=== PATIENT | male | born 1980 | race Caucasian/White ===

== ENCOUNTER → 2024-06-07 09:08 | Outpatient (REF) | payer OTHER, SELFPAY | LOC: PAVMRI 09:08 | PROVIDERS: ATTENDING PHYSICIAN Family Medicine; FAMILY PHYSICIAN Family Medicine | DX: S86.312A Strain of muscle(s) and tendon(s) of peroneal muscle group at lower leg level, left leg, initial encounter (principal); Z98.890 Other specified postprocedural states | CPT/HCPCS: 73721 ==

== ENCOUNTER 2024-06-29 12:45 | Emergency (ER) | payer OTHER, SELFPAY ==
[2024-06-29 12:47] VITALS: BP 123/73
--- NOTE | 2024-06-29 13:58 | ED.GENMED ---
History of Present Illness
General
Chief Complaint: Skin Problem
Source: patient
Exam Limitations: none
Time Seen by Provider: 06/29/24 13:33
History of Present Illness
History of Present Illness:
44yoM with no significant past medical history presenting for evaluation of right lower leg swelling and redness. He woke up yesterday with focal swelling to the anterior right lower leg. He thought he may have been bitten by a spider but does not
recall any specific incident. He has been applying warm compresses and the swelling has improved since yesterday. He continues to have redness and warmth to the area. He was seen by his orthopedist today for an unrelated issue and he was told to
go to urgent care for evaluation. He denies any fevers. No history of IV drug use. No prior history of MRSA.
Phy Exam
General Physical Exam
General Presentation: well appearing and no apparent distress
General age: appears stated age
General Skin: warm and dry
General Habitus: normal
General Mental: alert
ENT Exam
ENT Exam: normocephalic
Cardiovascular Exam
Cardiovascular Exam: normal peripheral pulses (2+ R DP pulse)
Pulmonary Exam
Pulmonary Exam: no respiratory distress
Neurological Exam
Neurological Exam: alert
Naif Coma Scale
Eye Opening: Spontaneous
Verbal Response: Oriented
Motor Response: Obeys Commands
GCS Total Score: 15
Musculoskeletal Exam
Musculoskeletal Exam: other (R lower leg: There is a focal area of swelling and induration to the anterior lower leg that appears to be a bug bite. There is surrounding erythema and warmth with faint red streaking proximally to the level of the mid
calf. No circumferential redness. No bullae, crepitus, or pain out of proportion)
Skin Exam
Skin Exam: warm/dry
Psychiatric Exam
Psychiatric Exam: normal mood/affect
Course
Vital Signs
Initial and Last Documented VS:
Initial Vital Signs
Temp Pulse Resp BP Pulse Ox
98.1 F 99 16 123/73 98
06/29/24 12:47 06/29/24 12:47 06/29/24 12:47 06/29/24 12:47 06/29/24 12:47
Last Documented Vital Signs
Temp Pulse Resp BP Pulse Ox
98.1 F 99 16 123/73 98
06/29/24 12:47 06/29/24 12:47 06/29/24 12:47 06/29/24 12:47 06/29/24 12:47
MDM/Problems Addressed
Differential Diagnosis Includes:
44yoM here with R lower leg redness and swelling x 1 day. Believes he was bitten by a spider. Swelling improved today. There is what appears to be an insect bite on exam with surrounding erythema and warmth. No fluctuance or drainage. No clinical
signs of NSTI including no bullae, pain out of proportion, or crepitus. RLE is neurovascularly intact. Differential diagnosis includes: cellulitis, localized reaction to insect bite
No indication for labs/imaging at this time as he is well appearing with normal vital signs. He was started on a course of Keflex and Bactrim. He was instructed to continue warm compresses. Advised close f/u with PCP and strict ED return precautions
discussed including spreading redness and fevers. Patient in agreement with plan and was discharged in stable condition.
*Critical Care Note
Total Time (30-74mins, 75-104mins- exclusive of procedures): Not Applicable
ED Attending Note
-
Portions of this chart may have been created with voice recognition software.� Occasional wrong word or��sound alike� substitutions may have occurred due to the inherent limitations of voice recognition software.
Discharge Plan
Departure
Patient Disposition: Home (Routine Discharge)
Date of Disposition: 06/29/24
Time of Disposition: 13:59
Patient with high blood pressure during this ER visit?: No
Discharge Problem:
Cellulitis of right anterior lower leg
Instructions: Cellulitis (Skin Infection), Adult (DC)
Prescriptions:
New
cephalexin 500 mg capsule
500 mg PO QID 7 Days Qty: 28 0RF
sulfamethoxazole-trimethoprim [Bactrim DS] 800-160 mg tablet
1 tab PO BID Qty: 14 0RF
Referrals:
[facility] [Provider Group]
NONE,* [Family Provider] -
Activity Restrictions/Additional Instructions:
Take antibiotics as prescribed. Continue to apply warm compresses to the area.
Please follow-up with your family doctor in 3 to 4 days. Return to the ER with any worsening symptoms including spreading redness or fevers.
Interventions
Interventions:
*Risk Screen - Suicide Last Done: 06/29/24 12:47
*General Assessment Last Done: 06/29/24 14:00
*Neglect/Abuse Screening Last Done: 06/29/24 12:47
*ED- Fall Risk Assessment Last Done: 06/29/24 14:00
*ED COVID-19 Vaccine History Last Done: 06/29/24 14:00
*Nursing Disposition Last Done: 06/29/24 14:29
ED-Skin Assessment Last Done: 06/29/24 14:00
Discharge Date and Time
Discharge Date/Time: 06/29/24 14:30
Print Language: GEORGIAN
== END 2024-06-29 14:30 | disposition home or self-care (01) ==
LOC: EMR 12:45
PROVIDERS: EMERGENCY PHYSICIAN Student in an Organized Health Care Education/Training Program
DX: L03.115 Cellulitis of right lower limb (principal)
CPT/HCPCS: 99285

== ENCOUNTER 2024-07-02 08:43 | Emergency (ER) | payer OTHER, SELFPAY ==
[2024-07-02 08:47] VITALS: BP 128/80
--- NOTE | 2024-07-02 09:57 | ED.GENMED ---
History of Present Illness
<Jamin Choudhury PA-C - Last Filed: 07/02/24 10:41>
General
Chief Complaint: Skin Problem
Source: patient
Exam Limitations: none
Time Seen by Provider: 07/02/24 09:33
History of Present Illness
History of Present Illness:
44-year-old otherwise healthy male presents complaint of increasing redness swelling and discomfort to the anterior distal right moon. He was here 3 days ago and diagnosed with cellulitis of the right lower leg started on Bactrim and Keflex. He
has been taking these for the past 3 days without any relief. He denies fevers or chills. He does note some redness coming up the moon. No other complaints at this time
Phy Exam
<Jamin Choudhury PA-C - Last Filed: 07/02/24 10:41>
Physical Exam
Physical Exam:
General: Well-appearing male no acute distress
HEENT: Normocephalic atraumatic
Heart: Regular rate and rhythm
Lungs: Clear no wheeze
Skin: Erythema fluctuance and tenderness is noted to the anterior distal right moon. The erythema does spread proximally to the proximal moon. This is superior to the tibial talar joint.
Vascular: 2+ DP pulse right foot
Musculoskeletal exam: Good range of motion right ankle
Course
<Jamin Choudhury PA-C - Last Filed: 07/02/24 10:41>
Vital Signs
Initial and Last Documented VS:
Initial Vital Signs
Temp Pulse Resp BP Pulse Ox
97.8 F 103 16 128/80 98
07/02/24 08:47 07/02/24 08:47 07/02/24 08:47 07/02/24 08:47 07/02/24 08:47
Last Documented Vital Signs
Temp Pulse Resp BP Pulse Ox
97.8 F 103 16 128/80 98
07/02/24 08:47 07/02/24 08:47 07/02/24 08:47 07/02/24 08:47 07/02/24 08:47
<Chantal Jade DO - Last Filed: 07/02/24 10:21>
Vital Signs
Initial and Last Documented VS:
Initial Vital Signs
Temp Pulse Resp BP Pulse Ox
97.8 F 103 16 128/80 98
07/02/24 08:47 07/02/24 08:47 07/02/24 08:47 07/02/24 08:47 07/02/24 08:47
Last Documented Vital Signs
Temp Pulse Resp BP Pulse Ox
97.8 F 103 16 128/80 98
07/02/24 08:47 07/02/24 08:47 07/02/24 08:47 07/02/24 08:47 07/02/24 08:47
<Jamin Choudhury PA-C - Last Filed: 07/02/24 10:41>
MDM/Problems Addressed
Differential Diagnosis Includes:
Right ankle swelling and erythema worse since the recent visit 3 days ago. Consider underlying abscess. Otherwise he is nontoxic.
<Jamin Choudhury PA-C - Last Filed: 07/02/24 10:41>
*Critical Care Note
Total Time (30-74mins, 75-104mins- exclusive of procedures): Not Applicable
<Jamin Choudhury PA-C - Last Filed: 07/02/24 10:41>
Update Note
Update Note:
Bedside ultrasound showed large abscess in anterior distal moon. This was incised and drained. The area was prepped with Betadine scrub and anesthetized with 1% lidocaine with epinephrine. 11 blade scalpel was used to make an incision over the
area of fluctuance. A large amount of purulent material was expressed from the wound this is irrigated and deloculated using needle drivers. Pressure around the wound was applied until only a bloody return was observed. After the procedure
patient had a palpable DP pulse to the right foot with brisk refill to the toes. A dressing was applied. He will continue Bactrim and Keflex. No indication for admission at this time
ED Attending Note
<Jamin Choudhury PA-C - Last Filed: 07/02/24 10:41>
-
Portions of this chart may have been created with voice recognition software.� Occasional wrong word or��sound alike� substitutions may have occurred due to the inherent limitations of voice recognition software.
<Chantal Jade DO - Last Filed: 07/02/24 10:21>
ED Attending Note
Patient seen and examined by attending physician: Yes
I performed the substantive portion of visit, reviewed & personally made and approve the management plan that is documented in note by myself or JAEL.: Yes
I performed a history and physical exam of patient and discussed management with resident, I reviewed resident's note and agree with documented findings and plan of care.: Yes
ED Attending Note:
44-year-old male presenting to the emergency department for right ankle swelling and redness. Patient reports symptoms for the past several days, was recently seen in the hospital for symptoms, suspected to have cellulitis, started on Bactrim and
Keflex. He has since had worsening of his symptoms, development of suspected abscess with increased swelling proximal to the ankle. Notes that he has had abscesses in the past. Denies numbness or tingling to his lower extremity. Denies fever or
systemic symptoms. Vital signs stable.
On exam, large fluctuant area proximal to the ankle joint, not involving the ankle joint. Bedside ultrasound confirms fluid collection. Surrounding cellulitis to the area. Distal sensation and pulses intact to the extremity. Suspect drainable
abscess. Plan for incision and drainage and continued antibiotics. No concern for septic arthritis, range of motion of ankle intact, no significant swelling to the ankle joint.
Discharge Plan
Departure
Patient Disposition: Home (Routine Discharge)
Date of Disposition: 07/02/24
Time of Disposition: 10:39
Patient with high blood pressure during this ER visit?: No
Discharge Problem:
Abscess
Instructions: Skin Abscess
Prescriptions:
New
sulfamethoxazole-trimethoprim [Bactrim DS] 800-160 mg tablet
1 tab PO BID Qty: 10 0RF
cephalexin 500 mg capsule
500 mg PO Q6H Qty: 20 0RF
No Action
cephalexin 500 mg capsule
500 mg PO QID 7 Days Qty: 28 0RF
sulfamethoxazole-trimethoprim [Bactrim DS] 800-160 mg tablet
1 tab PO BID Qty: 14 0RF
Referrals:
NONE,* [Family Provider] -
Stand Alone Forms: Return to Work
Activity Restrictions/Additional Instructions:
Use warm compresses or warm soaks to the area. Continue with antibiotics as directed. Please return here for increasing swelling fever pain or vomiting. Follow-up with your doctor otherwise
Interventions
Interventions:
*Risk Screen - Suicide Last Done: 07/02/24 08:47
*Neglect/Abuse Screening Last Done: 07/02/24 08:47
Discharge Date and Time
Print Language: PANAMANIAN
[2024-07-02 11:07] VITALS: BP 125/69
== END 2024-07-02 11:09 | disposition home or self-care (01) ==
LOC: EMR 08:43
PROVIDERS: EMERGENCY PHYSICIAN Student in an Organized Health Care Education/Training Program
DX: L02.415 Cutaneous abscess of right lower limb (principal)
CPT/HCPCS: 10060; 99282